=== PATIENT | male | born 1975 | race Caucasian/White ===

== ENCOUNTER 2017-01-01 05:53 | Emergency (ER) | payer BC ==
[~2017-01-01] VITALS: Ht 170.2 cm; Wt 99.9 kg
[~2017-01-01 05:53] MED LIST: HYDROXYZINE PAM25 MG PO
[2017-01-01] MEDS ORDERED: PERCOCET 5/31 TABLET PO (06:27)
[2017-01-01] MEDS ORDERED: IBUPROFEN600 MG PO (06:27)
[2017-01-01] MEDS ORDERED: FLEXERIL10 MG PO (06:27)
[2017-01-01 06:53] VITALS: BP 162/112
== END 2017-01-01 06:57 | disposition home or self-care (01) ==
LOC: EME 05:53
DX: S39.012A Strain of muscle, fascia and tendon of lower back, initial encounter (principal); X50.9XXA Other and unspecified overexertion or strenuous movements or postures, initial encounter; F17.200 Nicotine dependence, unspecified, uncomplicated
CPT/HCPCS: 99281; 99283